=== PATIENT | female | born 1960 | race Caucasian/White ===

== ENCOUNTER 2017-06-04 12:20 | Observation (INO) | payer OTHER ==
[~2017-06-04] VITALS: Ht 167.6 cm; Wt 95.9 kg
[~2017-06-04 12:20] MED LIST: ADVAIR 100/501 DISK IH; ADVAIR HFA120 INHAL2 IH; ASPIRIN81 M1 PO; ASPIRIN81 M2 PO; ATIVAN0.5 M1 PO; Advair HFA 45/21 IH; Aspirin E.C. PO; BACTRIM,SEPT1 TABLET PO; BIOFREEZE TP; CLARITIN10 MG PO; CYMBALTA30 MG PO; CYMBALTA60 MG PO; DESYREL100 MG PO; DIAZEPAM5 MG PO; DICLOFENAC SODI75 MG PO; DILAUDID2 MG PO; Desyrel PO; GABAPENTIN800 MG PO; GLUCOPHAGE1000 MG PO; GLUCOPHAGE500 MG PO; Habitrol,Nicoderm CQ TD; KEFLEX500 MG PO; LIDODERM 5% P1 PATCH PO; LIDODERM 5% P1 PATCH TD; LISINOPRIL20 MG PO; LORAZEPAM0.5 MG PO; Levaquin PO; MELOXICAM7.5 MG PO; MIRALAX17 GM PO; MIRALAX255 GM PO; MOBIC7.5 MG PO; MS CONTIN,ORAMO15 M1 PO; NEURONTIN800 MG PO; NEXIUM40 MG PO; NORCO 10/3251 TABLET PO; NUCYNTA50 MG PO; Neurontin PO; PEPCID40 MG PO; PERCOCET 10/1 TABLET PO; PRAVACHOL40 MG PO; PREVACID SOLUTA30 M1 GT; PREVACID30 MG PO; PROAIR HFA8.5 GM IH; Proventil,Ventolin H IH; REMERON15 M2 PO; ROBAXIN500 MG PO; Robaxin PO; STOOL SOFTENER100 MG PO; TRAZODONE HCL100 MG PO; TRILIPIX135 MG PO; VITAMIN D2000 UNIT PO; VOLTAREN 1% GE100 GM TP; VOLTAREN75 MG PO; Valium PO; WOMEN'S 50+ DA1 EAC1 PO; ZANAFLEX4 M1 PO; ZESTRIL,PRINIVI20 MG PO; Zestril,Prinivil PO; predniSONE PO
[2017-06-04 15:08] LABS: HEMATOCRIT 36.6 % (36.0-46.0); HEMOGLOBIN 12.3 G/DL (11.9-15.5); MCH 30.7 PG (29.0-34.0); MCHC 33.6 G/DL (30.0-36.0); MCV 91.3 FL (83-99); PLATELET COUNT 146 K/uL (156-360); RBC DIS.WIDTH-CV 14.7 % (11.8-14.6); RBC DIS.WIDTH-SD 49.5 % (39-53); RED BLOOD COUNT 4.01 M/uL (3.80-5.20); WHITE BLOOD COUNT 10.6 K/uL (4.1-10.2)
[2017-06-04 15:18] LABS: CHLORIDE 102 mEq/L (99-109); POTASSIUM 3.5 mEq/L (3.7-5.4); SODIUM 134 mEq/L (136-147)
[2017-06-04 15:20] LABS: GLUCOSE 119 mg/dL (70-99)
[2017-06-04 15:24] LABS: CREATININE 1.8 mg/dL (0.6-1.3); GFR ESTIMATE (CALCULATED) 31 mL/min/
[2017-06-04 15:25] LABS: UREA NITROGEN (BUN) 25 mg/dL (9-23)
[2017-06-04 15:51] LABS: BASOPHIL (%) 0.2 % (0-1); EOSINOPHIL (%) 0.3 % (0-5); HEMATOLOGY COMMENT 1 SN; IMMATURE GRANULOCYTE (%) 0.4 % (0.0-0.7); LYMPHOCYTE (%) 32.2 % (15-42); LYMPHOCYTE COUNT 3.4 K/uL (1.0-2.8); MONOCYTE (%) 8.5 % (3-12); MONOCYTE COUNT 0.9 K/uL (0-0.8); NEUTROPHIL (%) 58.4 % (45-76); NEUTROPHIL COUNT 6.2 K/uL (1.8-6.4); PLAT.SUFFICIENCY DECREASED
[2017-06-04 19:03] LABS: APPEARANCE SL.HAZY ((CLEAR)); BILIRUBIN NEGATIVE; BLOOD NEGATIVE; COLOR YELLOW ((YELLOW)); GLUCOSE (STRIP) NEGATIVE; KETONES NEGATIVE; LEUKOCYTES NEGATIVE; NITRITE POSITIVE; PROTEIN (STRIP) NEGATIVE; SPECIFIC GRAVITY 1.009 (1.000-1.030); UROBILINOGEN 0.2 MG/DL (0.2-1.0)
[2017-06-04 19:13] LABS: BACTERIA RARE /HPF; EPITHELIAL CELLS RARE /HPF; MUCUS TRACE /LPF; RED BLOOD CELLS 0-5 /HPF (0-5); UCUL ADDED? NO; WHITE BLOOD CELLS 0-5 /HPF (0-5)
[2017-06-04 19:25] LABS: AMPHETAMINE NEGATIVE (500 ng/mL); BARBITURATES NEGATIVE (200 ng/mL); BENZODIAZEPINES NEGATIVE (150 ng/mL); BUPRENORPHINE NEGATIVE (10 ng/mL); COCAINE NEGATIVE (150 ng/mL); METHADONE NEGATIVE (200 ng/mL); METHAMPHETAMINE NEGATIVE (500 ng/mL); OPIATES (MORPHINE) PRESUMPTIVE POSITIVE (100 ng/mL); OXYCODONE PRESUMPTIVE POSITIVE (100 ng/mL); PHENCYCLIDINE NEGATIVE (25 ng/mL); PROPOXYPHENE NEGATIVE (300 ng/mL); THC CANNABINOIDS NEGATIVE (50 ng/mL); TRICYCLIC ANTIDEPRESSANTS NEGATIVE (300 ng/mL)
[2017-06-04] MEDS ORDERED: AZITHROMYCIN250 MG PO (22:06)
[2017-06-04] MEDS ORDERED: PREDNISONE20 MG PO (22:07)
[2017-06-04] MEDS ORDERED: METFORMIN HCL1000 MG PO (22:08)
[2017-06-04] MEDS ORDERED: DULOXETINE HCL30 MG PO (22:09)
[2017-06-04] MEDS ORDERED: OMEPRAZOLE40 M1 PO (22:10)
[2017-06-04] MEDS ORDERED: DULOXETINE HCL60 MG PO (22:10)
[2017-06-04] MEDS ORDERED: LISINOPRIL10 MG PO (22:12)
[2017-06-04] MEDS ORDERED: PRAVASTATIN SOD80 MG PO (22:12)
[2017-06-04] MEDS ORDERED: DICLOFENAC SODI75 MG PO (22:13)
[2017-06-04] MEDS ORDERED: TIZANIDINE HCL4 MG PO (22:13)
[2017-06-04] MEDS ORDERED: OXYCODONE-APAP1 EACH PO (22:14)
[2017-06-04] MEDS ORDERED: MIRTAZAPINE30 MG PO (22:15)
[2017-06-04] MEDS ORDERED: POLYETHYLENE G255 GM PO (22:16)
[2017-06-05 08:00] VITALS: BP 132/78
[2017-06-05 09:15] VITALS: BP 139/65
[2017-06-05 11:26] VITALS: BP 147/75
[2017-06-05] MEDS ORDERED: AZITHROMYCIN500 M1 PO (11:38)
[2017-06-05] MEDS ORDERED: VENTOLIN HFA18 GM IH (11:47)
[2017-06-05 13:18] LABS: CHLORIDE 110 MEQ/L (99-109); UREA NITROGEN (BUN) 14 mg/dL (9-23)
[2017-06-05 13:22] LABS: CREATININE 0.8 MG/DL (0.6-1.3); GFR ESTIMATE (CALCULATED) > 59 mL/min/; GLUCOSE 180 mg/dL (70-99); POTASSIUM 4.3 MEQ/L (3.7-5.4); SODIUM 143 MEQ/L (136-147)
== END 2017-06-05 15:07 | disposition home or self-care (01) ==
LOC: EME 12:20 → EDOF 16:22 → ENRESERV 16:23 → ENPENDDIS 06-05 → EDOF 06-05 00:59 → ENRESERV 06-05 05:52 → 5WEST 06-05 07:36
PROVIDERS: Internal Medicine; Physician Assistant
DX: R07.9 Chest pain, unspecified (principal); J44.1 Chronic obstructive pulmonary disease with (acute) exacerbation; F17.210 Nicotine dependence, cigarettes, uncomplicated; R09.02 Hypoxemia; I10 Essential (primary) hypertension; E11.40 Type 2 diabetes mellitus with diabetic neuropathy, unspecified; F41.9 Anxiety disorder, unspecified; F32.9 Major depressive disorder, single episode, unspecified; Z79.82 Long term (current) use of aspirin; J32.3 Chronic sphenoidal sinusitis; Z79.4 Long term (current) use of insulin; N17.9 Acute kidney failure, unspecified; E86.0 Dehydration
CPT/HCPCS: 70450; 71045; 80048; 81003; 82948; 83605; 84999; 85025; 87040; 87502; 87641; 93005; 94640; 94640 76; 94760; 94799; 99202; 99281; 99285; G0378; J1650; J1815; J7030; J7512